=== PATIENT | female | born 1980 | race Caucasian/White ===

== ENCOUNTER 2020-12-31 10:43 | Day surgery (SDC) | payer MEDICARE, BC ==
[2020-12-31] MEDS ORDERED: Sodium Chloride 0.9% 20 ML ONE (11:58)
[2020-12-31] MEDS ORDERED: Acetaminophen 325 MG TAB PO SCH (12:00)
[2020-12-31 17:56] VITALS: BP 110/61; TEMP 99.3
== END 2020-12-31 18:01 | disposition home or self-care (01) ==
LOC: ONC/OP 10:43
PROVIDERS: ATTEND Physician Assistant Medical
PROC: 30233N1 Transfusion of Nonautologous Red Blood Cells into Peripheral Vein, Percutaneous Approach (ICD-10-PCS; principal; 2020-12-31)
DX: D50.0 Iron deficiency anemia secondary to blood loss (chronic) (principal)
CPT/HCPCS: 36430; 86850; 86900; 86901; P9016

== ENCOUNTER 2021-03-07 09:44 | Outpatient (CLI) | payer MEDICARE, BC | END 2021-03-07 09:45 | disposition home or self-care (01) | LOC: NM 09:44 | PROVIDERS: ATTEND Physician Assistant Medical | DX: K21.9 Gastro-esophageal reflux disease without esophagitis (principal); K59.00 Constipation, unspecified; R68.81 Early satiety; D64.9 Anemia, unspecified; R94.8 Abnormal results of function studies of other organs and systems | CPT/HCPCS: 78264; A9541 ==

== ENCOUNTER 2021-05-08 10:02 | Outpatient (CLI) | payer MEDICARE, BC ==
[2021-05-08 16:48] LABS: SARS-CoV-2 PCR by NAA Not Detected (NotDetected)
== END 2021-05-08 10:03 | disposition home or self-care (01) ==
LOC: LABBT 10:02
PROVIDERS: ATTEND Internal Medicine Hematology & Oncology
DX: Z01.812 Encounter for preprocedural laboratory examination (principal); D72.818 Other decreased white blood cell count; D63.8 Anemia in other chronic diseases classified elsewhere; D50.0 Iron deficiency anemia secondary to blood loss (chronic); D53.9 Nutritional anemia, unspecified; Z20.822 Contact with and (suspected) exposure to COVID-19
CPT/HCPCS: U0003; U0005

== ENCOUNTER 2021-05-13 08:39 | Day surgery (SDC) | payer MEDICARE, BC ==
[2021-05-12 13:26] VITALS: BMI 28.8
[2021-05-13 09:10] LABS: INR-International Normal Ratio 1.1; Prothrombin Time 13.9 sec (12.0-14.7)
[2021-05-13 09:23] LABS: PTT 22.8 sec (22.9-36.1)
[2021-05-13 11:18] VITALS: BP 125/67; TEMP 98.4
== END 2021-05-13 12:15 | disposition home or self-care (01) ==
LOC: CT 08:39
PROVIDERS: ATTEND Internal Medicine Hematology & Oncology
PROC: 07DR3ZX Extraction of Iliac Bone Marrow, Percutaneous Approach, Diagnostic (ICD-10-PCS; principal; 2021-05-13)
PROC: 079T3ZX Drainage of Bone Marrow, Percutaneous Approach, Diagnostic (ICD-10-PCS; 2021-05-13)
DX: D50.0 Iron deficiency anemia secondary to blood loss (chronic) (principal); D53.9 Nutritional anemia, unspecified; D72.818 Other decreased white blood cell count; K58.1 Irritable bowel syndrome with constipation; K21.9 Gastro-esophageal reflux disease without esophagitis; Z79.2 Long term (current) use of antibiotics; Z79.899 Other long term (current) drug therapy
CPT/HCPCS: 20225; 77012; 85610; 85730; 88184; 88237; 88264; 88280

== ENCOUNTER 2021-07-04 08:35 | Day surgery (SDC) | payer MEDICARE, BC ==
[2021-07-04] MEDS ORDERED: Acetaminophen 500 MG TAB ONE (10:28)
[2021-07-04] MEDS ORDERED: diphenhydrAMINE 25 MG CAP ONE (10:28)
[2021-07-04 13:02] VITALS: BP 121/58; TEMP 98.3
== END 2021-07-04 13:04 | disposition home or self-care (01) ==
LOC: ONC/OP 08:35
PROVIDERS: ATTEND Internal Medicine Hematology & Oncology
PROC: 30233N1 Transfusion of Nonautologous Red Blood Cells into Peripheral Vein, Percutaneous Approach (ICD-10-PCS; principal; 2021-07-04)
DX: D64.9 Anemia, unspecified (principal)
CPT/HCPCS: 36430; 86850; 86900; 86901; P9016

== ENCOUNTER 2021-08-01 15:21 | Day surgery (SDC) | payer MEDICARE, BC, MEDICAID ==
[2021-08-01] MEDS ORDERED: Acetaminophen 500 MG TAB PO SCH (16:15)
[2021-08-01] MEDS ORDERED: diphenhydrAMINE 25 MG CAP PO SCH (16:15)
[2021-08-01 16:49] VITALS: BMI 31.5
[2021-08-02 07:37] LABS: #Eosinphils 0.5 thou/uL (0.0-0.7); #Lymphocytes 1.4 thou/uL (1.20-3.40); #Monocytes 0.3 thou/uL (0.11-0.59); #Neutrophils 0.7 thou/uL (1.40-6.50); %Basophils 0.6 % (0.0-1.0); %Eosinophils 17.6 % (0.0-10.0); %Neutrophils 24.8 % (42.0-75.0); Hemoglobin 9.2 g/dL (12.0-16.0); Mean Corpuscular HGB CONC 33.9 g/dL (32.0-36.0); Mean Corpuscular Hemoglobin 32.1 pg (27.0-31.0); Mean Corpuscular Volume 94.7 fL (78.0-98.0); RBC Distribution Width 19.5 % (11.5-14.5); Red Blood Cell (RBC) Count 2.86 mill/uL (4.20-5.40)
[2021-08-02 07:40] LABS: Mean Platelet Volume 13.6 fL (7.4-10.4); Platelet Count 89 thou/uL (130-400)
[2021-08-02 07:41] LABS: Anisocytosis SLIGHT = 6-15 cells (100X) (0-5/hpf); Giant Platelets SLIGHT; Large Platelets MODERATE; MDiff Complete? YES; Ovalocytes SLIGHT = 2-5 cells (100X) (0-1/hpf); Platelet Morphology Comment Appears Decreased; Schistocytes SLIGHT = 2-5 cells (100X) (0-1/hpf); Target Cells SLIGHT = 2-5 cells (100X) (0-1/hpf); Tear Drops SLIGHT = 2-5 cells (100X) (0-1/hpf)
[2021-08-02 08:22] VITALS: BP 105/59; TEMP 97.7
== END 2021-08-02 10:22 | disposition home or self-care (01) ==
LOC: ONC/OP 15:21 → MSONC 15:42 → ONC/OP 08-02 10:22
PROVIDERS: ATTEND Internal Medicine Hematology & Oncology
PROC: 30233N1 Transfusion of Nonautologous Red Blood Cells into Peripheral Vein, Percutaneous Approach (ICD-10-PCS; principal; 2021-08-02)
DX: D64.9 Anemia, unspecified (principal); D69.6 Thrombocytopenia, unspecified
CPT/HCPCS: 36415; 36430; 85025; 86850; 86900; 86901; P9016

== ENCOUNTER 2021-08-22 09:18 | Day surgery (SDC) | payer MEDICARE, BC, MEDICAID ==
[2021-08-22] MEDS ORDERED: diphenhydrAMINE 25 MG CAP ONE (09:36)
[2021-08-22] MEDS ORDERED: Acetaminophen 500 MG TAB ONE (09:37)
[2021-08-22 11:27] VITALS: TEMP 98.7
[2021-08-22 12:33] VITALS: BP 101/57
== END 2021-08-22 12:47 | disposition home or self-care (01) ==
LOC: ONC/OP 09:18
PROVIDERS: ATTEND Internal Medicine Hematology & Oncology
PROC: 30233N1 Transfusion of Nonautologous Red Blood Cells into Peripheral Vein, Percutaneous Approach (ICD-10-PCS; principal; 2021-08-22)
DX: D64.9 Anemia, unspecified (principal); D69.6 Thrombocytopenia, unspecified
CPT/HCPCS: 36430; 86850; 86900; 86901; P9016

== ENCOUNTER 2021-10-02 14:39 | Inpatient (IN) | payer MEDICARE, BC, MEDICAID ==
[2021-10-02 15:23] LABS: Hemoglobin 6.3 g/dL (12.0-16.0); Mean Corpuscular HGB CONC 33.9 g/dL (32.0-36.0); Mean Corpuscular Hemoglobin 31.7 pg (27.0-31.0); Mean Corpuscular Volume 93.6 fL (78.0-98.0); Mean Platelet Volume 12.6 fL (7.4-10.4); Platelet Count 172 thou/uL (130-400); RBC Distribution Width 20.3 % (11.5-14.5); White Blood Cell (WBC) Count 2.4 thou/uL (4.8-10.8)
[2021-10-02 15:43] LABS: ALT (SGPT) 69 U/L (8-55); AST (SGOT) 19 U/L (5-34); Albumin 4.6 g/dL (3.5-5.0); Alkaline Phosphatase 66 U/L (40-110); Anion Gap 14 mmol/L (10-20); BUN (Urea Nitrogen) 5 mg/dL (7.0-18.7); Bilirubin, Total 0.8 mg/dL (0.2-1.2); Calc. Creatinine Clearance 0 mL/min (70-130); Calcium 9.7 mg/dL (7.8-10.44); Carbon Dioxide 25 mmol/L (22-29); Chloride 102 mmol/L (98-107); Estimated GFR 90; Globulin 3.7 g/dL (2.4-3.5); Glucose 109 mg/dL (70-105); Protein, Total 8.3 g/dL (6.0-8.3); Sodium 138 mmol/L (136-145)
[2021-10-02 15:49] LABS: Anisocytosis MODERATE=16-30 cells (100X) (0-5/hpf); Band 3 % (5-11); Eosinophils 14 % (0-10); Lymphocytes 49 % (21-51); MDiff Complete? YES; Monocytes 6 % (0-10); Neutrophil 13 % (42-75); Platelet Morphology Comment Appears Adequate; Poikilocytosis SLIGHT = 6-15 cells (100X) (0-5/hpf); Polychromasia SLIGHT = 2-3 cells (100X) (0-2/hpf); Schistocytes SLIGHT = 2-5 cells (100X) (0-1/hpf); Spherocytes SLIGHT = 1-5 cells (100X) (None Seen)
[2021-10-02 17:33] LABS: BHCG - Serum Negative (NEGATIVE); Pregs Control Background? CLEAR/WHITE (CLR/WHITE); Pregs Control Bar Appear? YES (CONTROL BAR)
[2021-10-02] MEDS ORDERED: Ondansetron ODT 4 MG TAB PO PRN (17:40)
[2021-10-02] MEDS ORDERED: Acetaminophen 650 MG Suppository PR PRN (17:40)
[2021-10-02] MEDS ORDERED: Ondansetron PF 4 MG/2 ML Vial IVP PRN (17:40)
[2021-10-02] MEDS ORDERED: Acetaminophen 325 MG TAB PO PRN (17:40)
[2021-10-02] MEDS ORDERED: Acetaminophen 500 MG TAB ONE (19:19)
[2021-10-02] MEDS ORDERED: diphenhydrAMINE 50 MG/ML VIAL ONE (19:19)
[2021-10-02 23:25] LABS: SARS-CoV-2 NAA Rapid Test Not Detected (NotDetected)
[2021-10-02 23:36] VITALS: BMI 29.3
[2021-10-03] MEDS ORDERED: lamoTRIgine 100 MG TAB PO SCH ×2 (00:45→21:00)
[2021-10-03 05:26] LABS: Band 4 % (5-11); Eosinophils 2 % (0-10); Hemoglobin 8.6 g/dL (12.0-16.0); Hypochromia SLIGHT = 6-15 cells (100X) (0-5/hpf); Lymphocytes 40 % (21-51); MDiff Complete? YES; Mean Corpuscular HGB CONC 33.9 g/dL (32.0-36.0); Mean Corpuscular Hemoglobin 32.1 pg (27.0-31.0); Mean Corpuscular Volume 94.8 fL (78.0-98.0); Mean Platelet Volume 12.6 fL (7.4-10.4); Neutrophil 54 % (42-75); Platelet Count 135 thou/uL (130-400); Platelet Morphology Comment Appears Adequate; RBC Distribution Width 17.5 % (11.5-14.5); Red Blood Cell (RBC) Count 2.68 mill/uL (4.20-5.40); White Blood Cell (WBC) Count 3.3 thou/uL (4.8-10.8)
[2021-10-03 08:01] LABS: Anion Gap 15 mmol/L (10-20); BUN (Urea Nitrogen) 6 mg/dL (7.0-18.7); Calc. Creatinine Clearance 101 mL/min (70-130); Calcium 9.1 mg/dL (7.8-10.44); Carbon Dioxide 23 mmol/L (22-29); Chloride 104 mmol/L (98-107); Estimated GFR 101; Glucose 101 mg/dL (70-105); Sodium 139 mmol/L (136-145)
[2021-10-03 08:06] LABS: Potassium 2.7 mmol/L (3.5-5.1)
[2021-10-03] MEDS ORDERED: (Linaclotide [Linzess] 290 MCG Capsule) PO SCH (09:00)
[2021-10-03] MEDS: FLUoxetine HCl 10 MG CAP PO SCH (09:20)
[2021-10-03] MEDS: lamoTRIgine 100 MG TAB PO SCH (09:20)
[2021-10-03] MEDS: Potassium Chloride 20 MEQ TAB PO SCH ×2 (09:21→14:07)
[2021-10-03] MEDS ORDERED: Electrolyte Replacement Protocol FS PRN (10:15)
[2021-10-03 10:32] LABS: Magnesium 2.2 mg/dL (1.6-2.6)
[2021-10-03] MEDS ORDERED: Potassium Chloride 20 MEQ TAB PO SCH (18:00)
[2021-10-04 06:17] LABS: Anion Gap 12 mmol/L (10-20); BUN (Urea Nitrogen) 7 mg/dL (7.0-18.7); Calc. Creatinine Clearance 102 mL/min (70-130); Carbon Dioxide 23 mmol/L (22-29); Chloride 110 mmol/L (98-107); Estimated GFR 103; Glucose 99 mg/dL (70-105); Potassium 3.7 mmol/L (3.5-5.1); Sodium 141 mmol/L (136-145)
[2021-10-04 08:16] VITALS: BP 107/70
[2021-10-04] MEDS: FLUoxetine HCl 10 MG CAP PO SCH (08:19)
[2021-10-04] MEDS: lamoTRIgine 100 MG TAB PO SCH (08:19)
[2021-10-04 11:47] VITALS: TEMP 97.9
[2021-10-04 11:53] LABS: #Basophils 0.1 thou/uL (0.0-0.2); #Eosinphils 0.5 thou/uL (0.0-0.7); #Lymphocytes 1.1 thou/uL (1.20-3.40); #Monocytes 0.2 thou/uL (0.11-0.59); #Neutrophils 0.6 thou/uL (1.40-6.50); %Basophils 2.1 % (0.0-1.0); %Eosinophils 19.1 % (0.0-10.0); %Lymphocytes 44.8 % (21.0-51.0); %Monocytes 8.5 % (0.0-10.0); %Neutrophils 25.6 % (42.0-75.0); Hemoglobin 8.7 g/dL (12.0-16.0); Mean Corpuscular HGB CONC 34.7 g/dL (32.0-36.0); Mean Corpuscular Hemoglobin 33.5 pg (27.0-31.0); Mean Corpuscular Volume 96.3 fL (78.0-98.0); Mean Platelet Volume 13.1 fL (7.4-10.4); Platelet Count 125 thou/uL (130-400); RBC Distribution Width 18.1 % (11.5-14.5); White Blood Cell (WBC) Count 2.5 thou/uL (4.8-10.8)
[2021-10-04 12:08] LABS: ALT (SGPT) 57 U/L (8-55); AST (SGOT) 19 U/L (5-34); Albumin 3.9 g/dL (3.5-5.0); Alkaline Phosphatase 54 U/L (40-110); Anion Gap 12 mmol/L (10-20); BUN (Urea Nitrogen) 9 mg/dL (7.0-18.7); Bilirubin, Total 0.6 mg/dL (0.2-1.2); Calc. Creatinine Clearance 101 mL/min (70-130); Calcium 9.1 mg/dL (7.8-10.44); Carbon Dioxide 22 mmol/L (22-29); Chloride 111 mmol/L (98-107); Estimated GFR 101; Globulin 3.2 g/dL (2.4-3.5); Glucose 128 mg/dL (70-105); Potassium 3.7 mmol/L (3.5-5.1); Protein, Total 7.1 g/dL (6.0-8.3); Sodium 141 mmol/L (136-145)
== END 2021-10-04 15:00 | disposition home or self-care (01) | DRG 812 ==
LOC: ERS 14:39 → MSONC 17:53 → OBSVTOIN 10-03 16:21
PROVIDERS: ADMIT Internal Medicine; ATTEND Internal Medicine
PROC: 30233N1 Transfusion of Nonautologous Red Blood Cells into Peripheral Vein, Percutaneous Approach (ICD-10-PCS; principal; 2021-10-02)
DX: D46.9 Myelodysplastic syndrome, unspecified (principal); Z20.822 Contact with and (suspected) exposure to COVID-19; E87.6 Hypokalemia; G40.909 Epilepsy, unspecified, not intractable, without status epilepticus; F39 Unspecified mood [affective] disorder; K21.9 Gastro-esophageal reflux disease without esophagitis; F41.9 Anxiety disorder, unspecified; K58.1 Irritable bowel syndrome with constipation; Z79.899 Other long term (current) drug therapy; Z85.841 Personal history of malignant neoplasm of brain; Z98.890 Other specified postprocedural states; Z86.011 Personal history of benign neoplasm of the brain; Z82.5 Family history of asthma and other chronic lower respiratory diseases; Z80.0 Family history of malignant neoplasm of digestive organs
CPT/HCPCS: 36415; 36430; 80048; 80053; 83735; 84703; 85025; 86850; 86900; 86901; 96374; G0378; J1200; P9016; U0002

== ENCOUNTER 2021-10-31 12:08 | Day surgery (SDC) | payer MEDICARE, BC ==
[2021-10-31] MEDS ORDERED: diphenhydrAMINE 25 MG CAP ONE (12:24)
[2021-10-31] MEDS ORDERED: Acetaminophen 500 MG TAB ONE (12:24)
[2021-10-31] MEDS ORDERED: Acetaminophen 500 MG TAB PO SCH (12:30)
[2021-10-31] MEDS ORDERED: diphenhydrAMINE 25 MG CAP PO SCH (12:30)
[2021-10-31 13:59] VITALS: TEMP 98.6
[2021-10-31 16:06] VITALS: BP 116/57
== END 2021-10-31 16:12 | disposition home or self-care (01) ==
LOC: ONC/OP 12:08
PROVIDERS: ATTEND Nurse Practitioner Family
PROC: 30233N1 Transfusion of Nonautologous Red Blood Cells into Peripheral Vein, Percutaneous Approach (ICD-10-PCS; principal; 2021-10-31)
DX: D64.9 Anemia, unspecified (principal); D69.6 Thrombocytopenia, unspecified
CPT/HCPCS: 36430; 86850; 86900; 86901; P9016

== ENCOUNTER 2021-11-11 09:13 | Day surgery (SDC) | payer MEDICARE, BC ==
[2021-11-11] MEDS ORDERED: Acetaminophen 500 MG TAB ONE (09:30)
[2021-11-11] MEDS ORDERED: diphenhydrAMINE 25 MG CAP ONE (09:30)
[2021-11-11 13:21] VITALS: BP 104/70; TEMP 98
== END 2021-11-11 13:21 | disposition home or self-care (01) ==
LOC: ONC/OP 09:13
PROVIDERS: ATTEND Internal Medicine Hematology & Oncology
PROC: 30233N1 Transfusion of Nonautologous Red Blood Cells into Peripheral Vein, Percutaneous Approach (ICD-10-PCS; principal; 2021-11-11)
DX: D64.9 Anemia, unspecified (principal); D69.6 Thrombocytopenia, unspecified
CPT/HCPCS: 36430; 86850; 86900; 86901; P9016

== ENCOUNTER 2022-03-03 08:35 | Day surgery (SDC) | payer MEDICARE, BC, MEDICAID ==
[2022-03-03] MEDS ORDERED: diphenhydrAMINE 25 MG CAP PO SCH (09:15)
[2022-03-03] MEDS ORDERED: Acetaminophen 500 MG TAB PO SCH ×2 (09:15→14:15)
[2022-03-03] MEDS ORDERED: diphenhydrAMINE 25 MG CAP ONE (09:32)
[2022-03-03] MEDS ORDERED: Acetaminophen 500 MG TAB ONE ×2 (09:32→14:03)
[2022-03-03 15:53] VITALS: BP 111/58; TEMP 98.7
== END 2022-03-03 16:32 | disposition home or self-care (01) ==
LOC: ONC/OP 08:35
PROVIDERS: ATTEND Internal Medicine Hematology & Oncology
PROC: 30233N1 Transfusion of Nonautologous Red Blood Cells into Peripheral Vein, Percutaneous Approach (ICD-10-PCS; principal; 2022-03-03)
DX: D64.9 Anemia, unspecified (principal); D69.6 Thrombocytopenia, unspecified
CPT/HCPCS: 36430; 86850; 86900; 86901; P9016

== ENCOUNTER 2022-05-12 08:45 | Day surgery (SDC) | payer BC, MEDICAID, MEDICARE ==
[2022-05-12] MEDS ORDERED: Acetaminophen 500 MG TAB ONE (10:08)
[2022-05-12] MEDS: diphenhydrAMINE 25 MG CAP ONE (10:09)
[2022-05-12 15:54] VITALS: BP 111/59; TEMP 98.8
== END 2022-05-12 16:00 | disposition home or self-care (01) ==
LOC: ONC/OP 08:45
PROVIDERS: ATTEND Internal Medicine Hematology & Oncology
PROC: 30233N1 Transfusion of Nonautologous Red Blood Cells into Peripheral Vein, Percutaneous Approach (ICD-10-PCS; principal; 2022-05-12)
DX: D64.9 Anemia, unspecified (principal); D69.6 Thrombocytopenia, unspecified
CPT/HCPCS: 36430; 86850; 86900; 86901; P9016